=== PATIENT | female | born 1950 | race Caucasian/White ===

== ENCOUNTER → 2017-04-16 | Outpatient (CLI) | payer MEDICARE ==
--- NOTE | 2017-04-17 11:03 | MM ---
Reason for exam: clinical finding. Last mammogram was performed 9 months ago. History: Patient is postmenopausal and had first child at age 35. Family history of premenopausal breast cancer in mother. Benign left US cyst aspiration ea add of the left breast, May 01, 2010. Benign left US cyst aspiration of the left breast, May 01, 2010. Benign stereotactic core biopsy of the left breast, January 23, 2000. Excisional biopsy of the right breast, 1969. Took hormonal contraceptives for 8 years beginning at age 19. Physical Findings: Nurse Summary: a 4 x 2cm nodule in the left breast at 11-1 o'clock (nurse cw). MG 3D Diag Mammo W/Cad RT CC and MLO view(s) were taken of the right breast. Prior study comparison: July 18, 2016, bilateral MG 3d diag mammo w/cad JODI. The breast tissue is heterogeneously dense. This may lower the sensitivity of mammography. No significant new findings when compared with previous films. These results were verbally communicated with the patient and result sheet given to the patient on 04/16/17. ASSESSMENT: Incomplete: need additional imaging evaluation, BI-RAD 0 RECOMMENDATION: Ultrasound of the right breast.
--- NOTE | 2017-04-17 11:05 | USB ---
Reason for exam: additional evaluation requested from abnormal screening. History: Patient is postmenopausal and had first child at age 35. Family history of premenopausal breast cancer in mother. Benign left US cyst aspiration ea add of the left breast, May 01, 2010. Benign left US cyst aspiration of the left breast, May 01, 2010. Benign stereotactic core biopsy of the left breast, January 23, 2000. Excisional biopsy of the right breast, 1969. Took hormonal contraceptives for 8 years beginning at age 19. US Breast Limited RT Right breast ultrasound demonstrates a 3.2 x 2.8 x 1.8cm oval, cystic cluster lesion at 12 o'clock, a 0.3 x 0.4 x 0.3cm oval, too small to characterize lesion at 1 o'clock, a 0.3 x 0.3 x 0.3cm oval, too small to characterize lesion at 3 o'clock, a 0.6 x 0.6 x 0.5cm oval, cystic cluster lesion at 9 o'clock, a 2.7 x 3.7 x 1.8cm oval, cystic, cluster lesion at 11 o'clock, and multiple, too numerous lesions at 10 o'clock. These results were verbally communicated with the patient and result sheet given to the patient on 04/16/17. ASSESSMENT: Benign, BI-RAD 2 RECOMMENDATION: Routine screening mammogram of both breasts in 4 months. Back on schedule July 2017. Manage patient on a clinical basis, palpable abnormality.
== END | disposition home or self-care (01) ==
LOC: RADMAMWWP 14:31
PROVIDERS: ATTEND Family Medicine
DX: N63 Unspecified lump in breast (principal)
CPT/HCPCS: 76642; G0206; G0279

== ENCOUNTER → 2017-07-28 | Outpatient (CLI) | payer MEDICARE ==
--- NOTE | 2017-07-30 07:55 | MM ---
Reason for exam: screening (asymptomatic). Last mammogram was performed 3 months ago. History: Patient is postmenopausal and had first child at age 35. Family history of premenopausal breast cancer in mother. Benign left US cyst aspiration ea add of the left breast, May 01, 2010. Benign left US cyst aspiration of the left breast, May 01, 2010. Benign stereotactic core biopsy of the left breast, January 23, 2000. Excisional biopsy of the right breast, 1970. Took hormonal contraceptives for 8 years beginning at age 19. Physical Findings: A clinical breast exam by your physician is recommended on an annual basis and results should be correlated with mammographic findings. MG 3D Screening Mammo W/Cad Bilateral CC and MLO view(s) were taken. Prior study comparison: July 18, 2016, bilateral MG 3d diag mammo w/cad JODI. July 17, 2015, bilateral MG screening mammo w CAD. The breast tissue is heterogeneously dense. This may lower the sensitivity of mammography. Finding: There are typically benign grouped calcifications in the upper inner quadrant, middle position of the left breast. Previous mammotome biopsy in the left breast. There is a chronic nodularity in the right breast, at least 4 large lesions stable. There is no new dominant lesion. ASSESSMENT: Benign, BI-RAD 2 RECOMMENDATION: Routine screening mammogram of both breasts in 1 year.
== END | disposition home or self-care (01) ==
LOC: RADMAMWWP 09:41
PROVIDERS: ATTEND Family Medicine
DX: Z12.31 Encounter for screening mammogram for malignant neoplasm of breast (principal)
CPT/HCPCS: 77063; G0202

== ENCOUNTER → 2018-09-29 | Outpatient (CLI) | payer MEDICARE ==
--- NOTE | 2018-09-29 09:54 | US ---
EXAMINATION TYPE: US abdomen complete DATE OF EXAM: 09/29/2018 COMPARISON: NONE CLINICAL HISTORY: R74.8 Abnormal blood work. bloating EXAM MEASUREMENTS: Liver Length: 15.9 cm Gallbladder Wall: 0.1 cm CBD: 0.2 cm Spleen: 12.6 cm Right Kidney: 10.2 x 5.3 x 4.8 cm Left Kidney: 10.1 x 5.4 x 4.5 cm Pancreas: obscured by overlying bowel gas Liver: wnl Gallbladder: multiple mobile, echogenic, shadowing foci seen within GB Evidence for sonographic Bonds's sign: No CBD: wnl Spleen: wnl Right Kidney: wnl Left Kidney: Mid/lower pole cyst = 1.6x 1.2 x 1.3 cm Upper IVC: wnl Abd Aorta: wnl IMPRESSION: 1. Cholelithiasis 2. Limited assessment of the pancreas due to bowel gas. 3. Left simple renal cyst.
== END | disposition home or self-care (01) ==
LOC: RADUSWWP 09:08
PROVIDERS: ATTEND Family Medicine
DX: K80.20 Calculus of gallbladder without cholecystitis without obstruction (principal); N28.1 Cyst of kidney, acquired; R74.8 Abnormal levels of other serum enzymes
CPT/HCPCS: 76700

== ENCOUNTER → 2018-10-14 | Outpatient (CLI) | payer MEDICARE ==
--- NOTE | 2018-10-14 11:47 | MM ---
Reason for exam: clinical finding. Last mammogram was performed 1 year and 3 months ago. History: Patient is postmenopausal and had first child at age 35. Family history of premenopausal breast cancer in mother at age 49. Benign left US cyst aspiration ea add of the left breast, May 01, 2010. Benign left US cyst aspiration of the left breast, May 01, 2010. Benign stereotactic core biopsy of the left breast, January 23, 2000. Excisional biopsy of the right breast, 1969. Took hormonal contraceptives for 8 years beginning at age 19. Physical Findings: Nurse Summary: 4 x 3cm nodule in the right breast at 12 o'clock (nurse dw). MG 3D Diag Mammo W/Cad JODI Bilateral CC and MLO view(s) were taken. Prior study comparison: July 28, 2017, bilateral MG 3d screening mammo w/cad. April 16, 2017, right breast MG 3d diag mammo w/cad RT. The breast tissue is heterogeneously dense. This may lower the sensitivity of mammography. There is chronic nodularity bilaterally, improved upper outer right breast. These results were verbally communicated with the patient and result sheet given to the patient on 10/14/18. ASSESSMENT: Benign, BI-RAD 2 RECOMMENDATION: Routine screening mammogram of the right breast in 1 year. Manage patient on a clinical basis.
== END | disposition home or self-care (01) ==
LOC: RADMAMWWP 09:42
PROVIDERS: ATTEND Family Medicine
DX: N63.0 Unspecified lump in unspecified breast (principal)
CPT/HCPCS: 77066; G0279; 77062

== ENCOUNTER 2019-01-04 08:10 | Day surgery (SDC) | payer MEDICARE ==
[2018-12-31 11:33] VITALS: BMI 25.0
[~2019-01-04 08:10] MED LIST: LACTATED RINGERS 1,000 ML IV SCH; LIDOCAINE 1% 20 ML VIAL (10MG/ML) FOR IV START INTRADERMA PRN; MIDAZOLAM (PF) 2 MG/2 ML VIAL IV PRN
[2019-01-04 08:31] VITALS: RESP 16; TEMP 98.2
[2019-01-04] MEDS ORDERED: PROPOFOL 10 MG/ML 20 ML VIAL IV ONE (09:21)
[2019-01-04] MEDS ORDERED: LIDOCAINE 1% INJ 10MG/ML (20 ML MDV) ONE (09:21)
--- NOTE | 2019-01-04 09:35 | P.GSHP ---
History of Present Illness H&P Date: 01/04/19 Chief Complaint: GI bleed This is a 68-year-old female who has had intermittent rectal bleeding. She is no blood in her stool. Patient presents today for colonoscopy. Past Medical History Past Medical History: Hypertension Additional Past Medical History / Comment(s): positive cologuard,internal and external hemorrhoids,gallstones History of Any Multi-Drug Resistant Organisms: None Reported Past Surgical History: Adenoidectomy, Breast Surgery, Tonsillectomy Additional Past Surgical History / Comment(s): lump benign removed rt breast Past Anesthesia/Blood Transfusion Reactions: No Reported Reaction Smoking Status: Current every day smoker - Past Family History Mother Family Medical History: Cancer Additional Family Medical History / Comment(s): breast Medications and Allergies Home Medications Medication Instructions Recorded Confirmed Type Liver And Gallbladder Supp. 5 drop PO DAILY 12/31/18 History Fish Oil (Unknown Dose) 2 tab PO DAILY 12/31/18 History Lisinopril 20 mg PO QAM 12/31/18 01/04/19 History Milk Thistle 150 mg PO DAILY 12/31/18 12/31/18 History Allergies Allergy/AdvReac Type Severity Reaction Status Date / Time codeine AdvReac severe Verified 01/04/19 08:22 agitation Surgical - Exam Vital Signs Temp Pulse Resp BP Pulse Ox 98.2 F 82 16 145/83 96 01/04/19 08:25 01/04/19 08:25 01/04/19 08:25 01/04/19 08:25 01/04/19 08:25 - General well developed, well nourished, no distress - Eyes PERRL - ENT normal pinna - Neck no masses - Respiratory normal expansion - Cardiovascular Rhythm: regular - Abdomen Abdomen: soft, non tender Assessment and Plan Assessment: GI bleed. We'll perform colonoscopy.
--- NOTE | 2019-01-04 09:51 | P.OP ---
Date of Procedure: 01/04/19 Preoperative Diagnosis: GI bleed Postoperative Diagnosis: Severe external and internal hemorrhoids Diverticulosis Left colon polyp Transverse colon polyp Procedure(s) Performed: Colonoscopy Anesthesia: MAC Surgeon: Tiago Galicia Pathology: other (Colon polyps) Condition: stable Disposition: PACU Description of Procedure: The patient's placed on the endoscopy table in the lateral position. She received IV sedation. Digital rectal exam was performed which revealed external and internal hemorrhoids. The flexible colonoscope was then placed patient anus and passed throughout the entire colon. The ileocecal valve was visualized. The cecum appeared normal. In the ascending colon was normal. In the transverse colon there was a small sessile polyp. This removed with a cold forcep. Scope was withdrawn and in the descending colon there was another polyp seen and this was removed with the snare. In the descending and sigmoid colon there were moderate diverticular changes. The scope was then brought back the rectum and this appeared normal. The scope was withdrawn through the anus and there were significant internal and external hemorrhoids.
[2019-01-04 09:59] VITALS: BP 108/69; PULSE 77
== END 2019-01-04 10:43 | disposition home or self-care (01) ==
LOC: ORWHC2ENDO 08:10
PROVIDERS: ATTEND Surgery
DX: D12.4 Benign neoplasm of descending colon (principal); D12.3 Benign neoplasm of transverse colon; K64.4 Residual hemorrhoidal skin tags; K64.8 Other hemorrhoids; K57.30 Diverticulosis of large intestine without perforation or abscess without bleeding; I10 Essential (primary) hypertension; F17.210 Nicotine dependence, cigarettes, uncomplicated; Z79.899 Other long term (current) drug therapy; Z88.5 Allergy status to narcotic agent
CPT/HCPCS: 88305; 45380; 45385; J2001; J2704

== ENCOUNTER → 2019-10-15 | Outpatient (CLI) | payer MEDICARE ==
--- NOTE | 2019-10-19 08:53 | MM ---
Reason for exam: screening (asymptomatic). Last mammogram was performed 1 year ago. History: Patient is postmenopausal and had first child at age 35. Family history of premenopausal breast cancer in mother at age 49. Benign left US cyst aspiration ea add of the left breast, May 01, 2010. Benign left US cyst aspiration of the left breast, May 01, 2010. Benign stereotactic core biopsy of the left breast, January 23, 2000. Excisional biopsy of the right breast, 1969. Took hormonal contraceptives for 8 years beginning at age 19. Physical Findings: A clinical breast exam by your physician is recommended on an annual basis and results should be correlated with mammographic findings. MG 3D Screening Mammo W/Cad Bilateral CC and MLO view(s) were taken. Prior study comparison: October 14, 2018, bilateral MG 3d diag mammo w/cad JODI. July 28, 2017, bilateral MG 3d screening mammo w/cad. The breast tissue is heterogeneously dense. This may lower the sensitivity of mammography. Previous mammotome biopsy in the left breast. There is extensive chronic nodularity bilaterally, stable or decreased in size. There is no discrete abnormality. ASSESSMENT: Benign, BI-RAD 2 RECOMMENDATION: Routine screening mammogram of both breasts in 1 year.
== END ==
LOC: RADMAMWWP 11:12
PROVIDERS: ATTEND Family Medicine
DX: Z12.31 Encounter for screening mammogram for malignant neoplasm of breast (principal)
CPT/HCPCS: 77063; 77067

== ENCOUNTER → 2021-01-05 | Outpatient (CLI) | payer MEDICARE ==
--- NOTE | 2021-01-09 09:17 | MM ---
Reason for exam: screening (asymptomatic). Last mammogram was performed 1 year and 3 months ago. History: Patient is postmenopausal and had first child at age 35. Family history of premenopausal breast cancer in mother at age 49. Benign left US cyst aspiration ea add of the left breast, May 01, 2010. Benign left US cyst aspiration of the left breast, May 01, 2010. Benign stereotactic core biopsy of the left breast, January 23, 2000. Excisional biopsy of the right breast, 1969. Took hormonal contraceptives for 8 years beginning at age 19. Physical Findings: A clinical breast exam by your physician is recommended on an annual basis and results should be correlated with mammographic findings. MG 3D Screening Mammo W/Cad Bilateral CC and MLO view(s) were taken. Prior study comparison: October 15, 2019, bilateral MG 3d screening mammo w/cad. October 14, 2018, bilateral MG 3d diag mammo w/cad JODI. The breast tissue is heterogeneously dense. This may lower the sensitivity of mammography. Stable calcifications left breast. Previous mammotome biopsy in the left breast. No significant changes when compared with prior studies. ASSESSMENT: Benign, BI-RAD 2 RECOMMENDATION: Routine screening mammogram of both breasts in 1 year.
== END | disposition home or self-care (01) ==
LOC: RADMAMWWP 12:36
PROVIDERS: ATTEND Family Medicine
DX: Z12.31 Encounter for screening mammogram for malignant neoplasm of breast (principal)
CPT/HCPCS: 77063; 77067

== ENCOUNTER → 2022-01-16 | Outpatient (CLI) | payer MEDICARE ==
--- NOTE | 2022-01-16 13:40 | MM ---
Reason for exam: screening (asymptomatic). Last mammogram was performed 1 year ago. History: Patient is postmenopausal and had first child at age 35. Family history of premenopausal breast cancer in mother at age 49. Benign left US cyst aspiration ea add of the left breast, May 01, 2010. Benign left US cyst aspiration of the left breast, May 01, 2010. Benign stereotactic core biopsy of the left breast, January 23, 2000. Excisional biopsy of the right breast, 1969. Took hormonal contraceptives for 8 years beginning at age 19. Physical Findings: A clinical breast exam by your physician is recommended on an annual basis and results should be correlated with mammographic findings. MG 3D Screening Mammo W/Cad Bilateral CC and MLO view(s) were taken. Prior study comparison: January 05, 2021, bilateral MG 3d screening mammo w/cad. October 15, 2019, bilateral MG 3d screening mammo w/cad. The breast tissue is extremely dense which could obscure a lesion on mammography. Stable calcifications left breast. There is chronic nodularity bilaterally. No significant changes when compared with prior studies. ASSESSMENT: Benign, BI-RAD 2 RECOMMENDATION: Routine screening mammogram of both breasts in 1 year. Manage patient on a clinical basis.
== END | disposition home or self-care (01) ==
LOC: RADMAMWWP 10:04
PROVIDERS: ATTEND Family Medicine
DX: Z12.31 Encounter for screening mammogram for malignant neoplasm of breast (principal)
CPT/HCPCS: 77063; 77067

== ENCOUNTER → 2022-01-22 | Outpatient (CLI) | payer MEDICARE ==
--- NOTE | 2022-01-22 10:30 | USB ---
Reason for exam: clinical finding. History: Patient is postmenopausal and had first child at age 35. Family history of premenopausal breast cancer in mother at age 49. Benign left US cyst aspiration ea add of the left breast, May 01, 2010. Benign left US cyst aspiration of the left breast, May 01, 2010. Benign stereotactic core biopsy of the left breast, January 23, 2000. Excisional biopsy of the right breast, 1969. Took hormonal contraceptives for 8 years beginning at age 19. Indicated problem(s): non-bloody discharge in the right breast. Physical Findings: A clinical breast exam by your physician is recommended on an annual basis and results should be correlated with mammographic findings. US Breast RT Right complete breast ultrasound includes all four quadrants, the retroareolar region and axilla. Finding demonstrates a 2.1 x 1.9 x 1.5cm lobular, cystic lesion at 12 o'clock, a 0.5 x 0.6 x 0.4cm oval, hypoechoic lesion at 12 o'clock, 6 month follow up recommended, a 0.5 x 0.8 x 0.7cm lobular, oval, cluster, mixed lesion at 1 o'clock, probably debris filled cyst, a 1.6 x 1.8 x 1.3cm oval, complicated, cystic lesion at 2 o'clock, a 0.9 x 0.8 x 0.6cm oval, hypoechoic lesion at 4 o'clock, 6 month follow up recommended, a 0.5 x 1.0 x 0.4cm oval, hypoechoic, vascular lesion at 5 o'clock, 6 month follow up recommended, a 1.1 x 1.0 x 0.9cm complicated, cystic lesion at 5 o'clock, 6 month follow up recommended, a 1.6 x 0.7 x 1.0cm mixed lesion at 7 o'clock, 6 month follow up recommended, a 0.5 x 0.5 x 0.2cm oval, hypoechoic lesion at 10 o'clock, a 0.7 x 0.8 x 0.6cm hypoechoic lesion at 10 o'clock, 6 month follow up recommended, a 1.1 x 1.0 x 0.8cm lobular, cystic lesion at 11 o'clock and a 0.7 x 0.9 x 0.6cm oval, irregular, hypoechoic lesion at 11:30, 6 month follow up recommended. Benign appearing axillary nodes. These results were verbally communicated with the patient and result sheet given to the patient on 01/22/22. ASSESSMENT: Probably benign, BI-RAD 3 RECOMMENDATION: Ultrasound of the right breast in 6 months. Manage on a clinical basis with regard to episode of clear nipple discharge. If it recurs and becomes spontaneous, further evaluation can be considered.
== END | disposition home or self-care (01) ==
LOC: RADUSWWP 08:49
PROVIDERS: ATTEND Family Medicine
DX: N64.52 Nipple discharge (principal)

== ENCOUNTER → 2022-04-25 | Outpatient (CLI) | payer MEDICARE ==
--- NOTE | 2022-04-25 09:54 | USB ---
Reason for Exam: Follow-up at short interval from prior study. Patient History: Menarche at age 11. First Full-Term at age 35. Late child-bearing (after 30). Postmenopausal. Hormonal Contraceptives, starting at age 19 for 8 years. 1970, Excisional Biopsy on the Right side. 05/01/2010, Benign Cyst Aspiration on the left side. 05/01/2010, Benign Cyst Aspiration on the left side. 01/23/2000, Benign Stereotactic Core Biopsy on the left side. Mother had breast cancer, age 49. Risk Values: Deanna 5 year model risk: 5.3%. NCI Lifetime model risk: 12.6%. Technique: Method: Whole Breast Handheld. Prior Study Comparison: 10/15/2019 Bilateral Screening Mammogram, [facility]. 01/05/2021 Bilateral Screening Mammogram, [facility]. 01/16/2022 Bilateral Screening Mammogram, [facility]. Findings: The whole breast of the right breast, the axilla of the right breast and the retroareolar of the right breast were scanned. Multiple cysts and clusters of cysts are scattered throughout the visualized portions of the breasts. Some are too small to classify. Short-term follow-up breast ultrasound is recommended in 6 months. There is a complex cyst containing internal debris with smooth margins and good through transmission and posterior wall enhancement. Cyst aspiration of this 1:00 position cyst is recommended. This measures 2.2 x 1.4 x 1.6 cm.. Overall Assessment: Suspicious, BI-RAD 4 Management: Aspiration of the right breast. A clinical breast exam by your physician is recommended on an annual basis and results should be correlated with mammographic findings. Electronically signed and approved by: Deng Garcia D.O. Radiologis
== END | disposition home or self-care (01) ==
LOC: RADUSWWP 09:01
PROVIDERS: ATTEND Family Medicine
DX: R92.8 Other abnormal and inconclusive findings on diagnostic imaging of breast (principal)

== ENCOUNTER → 2022-05-10 | Outpatient (CLI) | payer MEDICARE ==
[2022-05-10 09:40] VITALS: BP 137/79; PULSE 89; RESP 17; TEMP 98.5
--- NOTE | 2022-05-10 10:33 | P.GSHP ---
History of Present Illness H&P Date: 05/10/22 Chief Complaint: abnormal right breast ultrasound Tiffany is a 71 year old white female seen in consultation for Dr. Catsellanos regarding an ultrasound abnormality in the right breast. The patient had a routine screening mammogram performed on 3221. She also had a right breast ultrasound which was done on 3821, a repeat ultrasound was recommended in 6 months. This was performed on 6921. As a result of this a complex cyst with internal debris was noted and aspiration of the 1:00 cyst was recommended. The cyst was felt to measure 2.2 x 1.6 cm. The patient does not feel any lumps masses or nodules of concern in either breast. She is complaining of any nipple discharge or skin changes. She has not had any trauma or infection in the breast. She had a stero biopsy of her left breast on January 23 2000. An excisional biopsy of the right breast in 1969. These were both benign. Caffeine: 3/day tea and coke nicotine: 1/3 of cigarette at at time chocolate: daily hormones: BCP: at 19 for 8 years Family History: mother: breast cancer (took estrogen) Hormonal History: menarche: 11 M2, breast fed: yes, age at first : 35 menopause: 48 Surgical History: breast biopsy Medical History: HTN Social History: nicotine: since 18 alcohol: beer drinker (monthly) drugs: none - Constitutional Constitutional: Denies chills, Denies fever - EENT Eyes: denies blurred vision, denies pain Ears: bilateral: decreased hearing, deny: tinnitus Ears, nose, mouth and throat: Denies headache, Denies sore throat - Breasts Breasts: bilateral: as per HPI - Cardiovascular Cardiovascular: Denies chest pain, Denies shortness of breath - Respiratory Respiratory: Denies cough, Denies 7 - Gastrointestinal Gastrointestinal: Denies abdominal pain, Denies diarrhea, Denies nausea, Denies vomiting - Genitourinary (Female) Genitourinary: Denies dysuria, Denies hematuria - Menstruation Menstruation: Reports postmenopausal - Musculoskeletal Musculoskeletal: Denies myalgias - Integumentary Integumentary: Denies pruritus, Denies rash - Neurological Neurological: Denies numbness, Denies weakness - Psychiatric Psychiatric: Denies anxiety, Denies depression - Endocrine Endocrine: Reports weight change, Denies fatigue - Hematologic/Lymphatic Comment: none - Allergic/Immunologic Allergic/Immunologic: Reports seasonal allergies Past Medical History Past Medical History: Hypertension Additional Past Medical History / Comment(s): positive cologuard,internal and external hemorrhoids,gallstones History of Any Multi-Drug Resistant Organisms: None Reported Past Surgical History: Adenoidectomy, Breast Surgery, Tonsillectomy Additional Past Surgical History / Comment(s): lump benign removed rt breast Past Anesthesia/Blood Transfusion Reactions: No Reported Reaction Smoking Status: Current every day smoker Past Alcohol Use History: Rare Additional Past Alcohol Use History / Comment(s): started smoking mid 20's on and off,1ppd Past Drug Use History: None Reported - Past Family History Mother Family Medical History: Cancer Additional Family Medical History / Comment(s): breast Medications and Allergies Home Medications Medication Instructions Recorded Confirmed Type Liver And Gallbladder Supp. 5 drop PO DAILY 12/31/18 05/10/22 History Fish Oil (Unknown Dose) 2 tab PO DAILY 12/31/18 05/10/22 History lisinopriL 20 mg PO QAM 12/31/18 05/10/22 History Doxycycline [Vibramycin] 25 mg PO DAILY 04/25/22 05/10/22 History Allergies Allergy/AdvReac Type Severity Reaction Status Date / Time codeine AdvReac severe Verified 05/10/22 09:36 agitation Surgical - Exam Vital Signs Temp Pulse Resp BP Pulse Ox 98.5 F 89 17 137/79 97 05/10/22 09:37 05/10/22 09:37 05/10/22 09:37 05/10/22 09:37 05/10/22 09:37 BMI: 25.8 - General no distress - Eyes normal ocular movement - Neck trachea midline - Respiratory normal respiratory effort - Cardiovascular Rhythm: regular Heart Sounds: normal: S1, S2 - Abdomen Abdomen: soft, non tender, no guarding, no rigid, no rebound - Integumentary normal turgor - Neurologic no disoriented, no combative - Musculoskeletal normal gait - Psychiatric oriented to time, oriented to person, oriented to place, speech is normal, memory intact Breast Exam: BRA: 38B inspection: bilateral grade 3 ptosis and bilateral inverted nipples Palpation: right breast: Positional exam dense breasts no dominant masses or nodules of concern Right axilla: No adenopathy of concern Left breast: Multi-positional exam dense breast fibrocystic changes no dominant masses or nodules of concern Left axilla: No adenopathy of concern Results Results of mammogram and ultrasound reviewed Assessment and Plan Assessment: Impression: Dense breast Fibrocystic breast changes Abnormal right breast ultrasound Plan: Right breast ultrasound aspiration/core biopsy Follow up after biopsy Risks and benefits to procedure discussed with the patient. She understands and wishes to proceed. CC: Dr. Castellanos
== END ==
LOC: WWCWWP 09:04
PROVIDERS: ATTEND Surgery
DX: N60.11 Diffuse cystic mastopathy of right breast (principal); F17.210 Nicotine dependence, cigarettes, uncomplicated; I10 Essential (primary) hypertension; Z79.899 Other long term (current) drug therapy; Z88.5 Allergy status to narcotic agent

== ENCOUNTER → 2022-05-10 | Day surgery (SDC) | payer MEDICARE ==
--- NOTE | 2022-05-15 12:24 | USB ---
Reason for Exam: Post Procedure Mammogram. Last screening mammogram was performed 3 month(s) ago. Patient History: Menarche at age 11. First Full-Term at age 35. Late child-bearing (after 30). Postmenopausal. Hormonal Contraceptives, starting at age 19 for 8 years. 1970, Excisional Biopsy on the Right side. 05/01/2010, Benign Cyst Aspiration on the left side. 05/01/2010, Benign Cyst Aspiration on the left side. 01/23/2000, Benign Stereotactic Core Biopsy on the left side. Mother had breast cancer, age 49. Risk Values: Deanna 5 year model risk: 5.3%. NCI Lifetime model risk: 12.6%. Prior Study Comparison: 10/15/2019 Bilateral Screening Mammogram, [facility]. 01/05/2021 Bilateral Screening Mammogram, [facility]. 01/16/2022 Bilateral Screening Mammogram, [facility]. Tissue Density: Right: The breast tissue is extremely dense which could obscure a lesion on mammography. Pathology Description: Location: 1 o'clock. The ultrasound guided cyst aspiration procedure was explained to the patient. The risks, benefits, alternatives were discussed. An informed consent was then obtained. A time out was performed. The patient was placed in supine positioning for imaging and for the procedure. The overlying skin was prepped with betadine and sterilely draped in usual sterile fashion. 6 ml 1% lidocaine was used as anesthetic into the skin and deeper breast tissue up to area of concern in the right 1:00 o'clock breast. Under ultrasound guidance, an 18-gauge spinal needle was advanced into the cyst and aspiration yielded .5 mL of brownish bloody aspirate. The fluid was labeled and sent for laboratory analysis. A clip was left in lesion. Good hemostasis was obtained with direct pressure. Postprocedure mammogram: The patient was transferred to mammography for physician ordered post procedure mammogram for clip placement verification. The clip is in the expected region of the biopsy. The patient tolerated the procedure well without any immediate complication. The patient was discharged to home in stable condition. Impression: Successful ultrasound guided cyst aspiration right 1:00 breast. Cytology pending. Pathology Results: Result: Benign. RIGHT BREAST, 1:00 POSITION, ASPIRATION: Degenerated cyst contents with macrophages, few benign and degenerated epithelial cells and scattered inflammatory cells. See note. Overall Assessment: Benign Assessment: MG diagnostic mammo RT wo CAD - Right: Benign, BI-RAD 2. Management: Diagnostic Breast Ultrasound of the right breast in 6 months. Electronically signed and approved by: Nino Hernández M.D. Radiologis
== END ==
LOC: RADUSWWP 09:31
PROVIDERS: ATTEND Surgery
DX: N60.01 Solitary cyst of right breast (principal); Z80.3 Family history of malignant neoplasm of breast; Z88.5 Allergy status to narcotic agent; Z79.899 Other long term (current) drug therapy; F17.200 Nicotine dependence, unspecified, uncomplicated
CPT/HCPCS: 88305; 88173; 77065; 76942; 19000; A4648

== ENCOUNTER → 2022-05-17 | Outpatient (CLI) | payer MEDICARE ==
[2022-05-17 15:27] VITALS: BP 153/87; PULSE 103; RESP 18; TEMP 98.5
--- NOTE | 2022-05-17 15:52 | P.PN ---
Subjective Progress Note Date: 05/17/22 Principal diagnosis: fibrocystic breast Tiffany is a 71 year old white female status post aspiration of a right breast cyst on 05-10-22 which was benign cyst contents. She tolerated the procedure without difficulty. Objective - Vital Signs Vital signs: Vital Signs Temp 98.5 F 05/17/22 15:24 Pulse 103 H 05/17/22 15:24 Resp 18 05/17/22 15:24 BP 153/87 05/17/22 15:24 Pulse Ox 95 05/17/22 15:24 FiO2 Intake & Output 05/16/22 05/17/22 05/17/22 18:59 06:59 18:59 Weight 72.575 kg - Constitutional General appearance: Present: cooperative - EENT Eyes: Present: EOMI ENT: Present: hearing grossly normal - Neck Neck: Present: normal ROM - Respiratory Respiratory: bilateral: CTA - Cardiovascular Abnormal Heart Sounds: Present: systolic murmur - Integumentary Integumentary Comment(s): mild echymosis at biopsy site - Musculoskeletal Musculoskeletal: Present: gait normal - Psychiatric Psychiatric: Present: A&O x's 3, appropriate affect, intact judgment & insight - Additional findings Additional findings: Right breast biopsy spot: Mild ecchymosis at site no evidence of infection Assessment and Plan Assessment: Impression: Aspiration cystic lesion right breast pathology benign Plan: Repeat right breast ultrasound in 6 months with physician exam at that time Question systolic ejection murmur would recommend follow-up with primary care do brandior CC: Dr. Castellanos
== END | disposition home or self-care (01) ==
LOC: WWCWWP 15:13
PROVIDERS: ATTEND Surgery
DX: Z53.9 Procedure and treatment not carried out, unspecified reason (principal)

== ENCOUNTER → 2022-06-25 | Outpatient (CLI) | payer MEDICARE ==
--- NOTE | 2022-06-25 11:43 | CA ---
Transthoracic Echo Report Name: Tiffany Blair Age: 71 Gender: F : 1950 Exam Date: 06/25/2022 10:21 Exam Location: [place] [facility] Ht (in): 66 Wt (lb): 170 Ordering Physician: Mi Castellanos MD Attending/Referring Phys: MARS HOOVER [employer] P[employer] Yolanda Maciel RDCS Procedure CPT: Indications: R01.1 MURMUR I10 HTN E78.00 HYPERCHOLESTEROLEM Cardiac Hx: Fm hx Technical Quality: Fair Contrast 1: Total Dose (mL): Contrast 2: Total Dose (mL): MEASUREMENTS (Male / Female) Normal Values 2D ECHO LV Diastolic Diameter PLAX 2.3 cm 4.2 - 5.9 / 3.9 - 5.3 cm LV Systolic Diameter PLAX 1.4 cm IVS Diastolic Thickness 1.0 cm 0.6 - 1.0 / 0.6 - 0.9 cm LVPW Diastolic Thickness 1.1 cm 0.6 - 1.0 / 0.6 - 0.9 cm LV Relative Wall Thickness 0.9 RV Internal Dim ED PLAX 1.6 cm LA Volume 26.6 cm??? 18 - 58 / 22 - 52 cm??? M-MODE Aortic Root Diameter MM 3.1 cm LA Systolic Diameter MM 2.9 cm LA Ao Ratio MM 0.9 MV E Point Septal Separation 0.2 cm AV Cusp Separation MM 2.0 cm DOPPLER AV Peak Velocity 225.0 cm/s AV Peak Gradient 20.2 mmHg AV Mean Velocity 196.0 cm/s AV Mean Gradient 16.3 mmHg AV Velocity Time Integral 47.9 cm LVOT Peak Velocity 195.4 cm/s LVOT Peak Gradient 15.3 mmHg MV Area PHT 3.1 cm??? MR Peak Velocity 527.5 cm/s MR Peak Gradient 111.3 mmHg Mitral E Point Velocity 80.3 cm/s Mitral A Point Velocity 127.5 cm/s Mitral E to A Ratio 0.6 MV Deceleration Time 241.8 ms MV E' Velocity 7.7 cm/s Mitral E to MV E' Ratio 10.4 TR Peak Velocity 264.9 cm/s TR Peak Gradient 28.1 mmHg Right Ventricular Systolic Press 33.1 mmHg FINDINGS Left Ventricle Mildly increased posterior wall thickness. Left ventricular ejection fraction is estimated at 55-60 %. Left ventricular cavity size normal. There is a sigmoid septum which could be causing the LVOT gradient to be high. Right Ventricle The right ventricle is normal in size and function. Right Atrium The right atrium is normal in size. Left Atrium The left atrium is normal in size. Mitral Valve Structurally normal mitral valve without significant stenosis or prolapse. There is trace mitral regurgitation. Aortic Valve Aortic valve not well visualized. Possible mild Aortic stenosis with a peak gradient of 20 mmHg and a mean gradient of 16 mmHg. There also appears to be a gradient across the LVOT with a peak graient of 18 mmHg. Lvot gradient is higher but can not achieve true peak gradient due to alliasing. Tricuspid Valve Structurally normal tricuspid valve without significant stenosis. Pulmonary artery systolic pressure is normal. Trace tricuspid regurgitation. Pulmonic Valve Structurally normal pulmonic valve without significant stenosis. There is no pulmonic regurgitation. Pericardium Normal pericardium without effusion. Aorta Normal aortic root dimension. CONCLUSIONS Normal LV systolic function with asymmetrical septal hypertrophy and left ventricular outflow tract gradients Mild aortic stenosis Previewed by: Dr. Angelito Yin MD (Electronically Signed) Final Date: 25 June 2022 11:43
== END | disposition home or self-care (01) ==
LOC: RADECHMAIN 10:15
PROVIDERS: ATTEND Family Medicine
DX: R01.1 Cardiac murmur, unspecified (principal); I10 Essential (primary) hypertension; E78.00 Pure hypercholesterolemia, unspecified
CPT/HCPCS: 93306

== ENCOUNTER → 2023-01-31 | Outpatient (CLI) | payer MEDICARE ==
--- NOTE | 2023-01-31 14:25 | MM ---
Reason for Exam: Clinical finding. Last screening mammogram was performed 12 month(s) ago. Indicated Problems: Lump or thickening of the right side for 2 Week(s). Non-bloody discharge of the right side. Patient History: Menarche at age 11. First Full-Term at age 35. Late child-bearing (after 30). Postmenopausal. Hormonal Contraceptives, starting at age 19 for 8 years. 05/10/2022, Benign US breast aspiration single RT on the right side. 1969, Excisional Biopsy on the Right side. 05/01/2010, Benign Cyst Aspiration on the left side. 05/01/2010, Benign Cyst Aspiration on the left side. 01/23/2000, Benign Stereotactic Core Biopsy on the left side. Mother had breast cancer, age 49. Risk Values: Deanna 5 year model risk: 5.3%. NCI Lifetime model risk: 11.9%. Prior Study Comparison: 10/15/2019 Bilateral Screening Mammogram, [facility]. 01/05/2021 Bilateral Screening Mammogram, [facility]. 01/16/2022 Bilateral Screening Mammogram, [facility]. 05/10/2022 Right MG diagnostic mammo RT wo CAD, [facility]. Tissue Density: The breast tissue is heterogeneously dense. This may lower the sensitivity of mammography. Findings: Analyzed By CAD. Benign-appearing round calcifications within both breasts. Biopsy markers demonstrated within both breasts. Similar chronic nodularity within the left breast. There are new and/or enlarged at least 4 distinct round circumscribed masses within the right breast at site of palpable abnormality. The largest measures up to 2.8 cm with another one measuring 2.2 cm just beneath the palpable marker. Another one posteriorly measures up to 1.6 cm. Overall Assessment: Incomplete: need additional imaging evaluation, BI-RAD 0 Management: Diagnostic Breast Ultrasound of the right breast. A clinical breast exam by your physician is recommended on an annual basis and results should be correlated with mammographic findings. This exam should not preclude additional follow-up of suspicious palpable abnormalities. Results were given to the patient verbally at the time of exam. Electronically signed and approved by: Paul Mittal D.O.
--- NOTE | 2023-01-31 14:38 | USB ---
Reason for Exam: Follow-up at short interval from prior study. Patient History: Menarche at age 11. First Full-Term at age 35. Late child-bearing (after 30). Postmenopausal. Hormonal Contraceptives, starting at age 19 for 8 years. 05/10/2022, Benign US breast aspiration single RT on the right side. 1969, Excisional Biopsy on the Right side. 05/01/2010, Benign Cyst Aspiration on the left side. 05/01/2010, Benign Cyst Aspiration on the left side. 01/23/2000, Benign Stereotactic Core Biopsy on the left side. Mother had breast cancer, age 49. Risk Values: Deanna 5 year model risk: 5.3%. NCI Lifetime model risk: 11.9%. Prior Study Comparison: 01/05/2021 Bilateral Screening Mammogram, [facility]. 01/16/2022 Bilateral Screening Mammogram, [facility]. 05/10/2022 Right MG diagnostic mammo RT wo CAD, [facility]. Findings: The whole breast of the right breast, the axilla of the right breast and the retroareolar of the right breast were scanned. A complete US of all four quadrants of the breast and retro-areolar nipple region were reviewed. There is a simple anechoic cyst at 12:00 in the patient's region of about a 3 cm from the nipple measuring 2.8 x 1.9 x 2.2 cm. Previous aspiration with clip identified at 1:00 2 sagittal nipple. There is a complex cyst within the right breast at 1:00 2 cm from the nipple measuring 1.6 x 0.9 x 1.4 cm without internal color flow. The internal paracolic region does not appear to layer. Additional complex cyst with internal debris in the right breast at 2:00 2 sagittal and nipple measuring 0.7 x 0.5 x 0.4 cm. Cluster of cysts demonstrated within the right breast at 4:00 3 cm from nipple measuring 1.7 x 0.8 x 1.6 cm. This is similar to prior examination. Additional cluster of cysts identified within the right breast at 7:00 4 cm the nipple measuring 1.8 x 0.8 x 1.0 cm. This is stable from prior examination.A complete US of all four quadrants of the breast and retro-areolar nipple region were reviewed. There is a simple anechoic cyst at 12:00 in the patient's region of about a 3 cm from the nipple measuring 2.8 x 1.9 x 2.2 cm. Previous aspiration with clip identified at 1:00 2 sagittal nipple. There is a complex cyst within the right breast at 1:00 2 cm from the nipple measuring 1.6 x 0.9 x 1.4 cm without internal color flow. The internal hypoechoic region does not appear to layer. Additional complex cyst with internal debris in the right breast at 2:00 2 sagittal and nipple measuring 0.7 x 0.5 x 0.4 cm. Cluster of cysts demonstrated within the right breast at 4:00 3 cm from nipple measuring 1.7 x 0.8 x 1.6 cm. This is similar to prior examination. Additional cluster of cysts identified within the right breast at 7:00 4 cm the nipple measuring 1.8 x 0.8 x 1.0 cm. This is stable from prior examination. Overall Assessment: Suspicious, BI-RAD 4 Management: Aspiration of the right breast. Recommendation for aspiration of 2 cysts containing internal debris within the right breast. A clinical breast exam by your physician is recommended on an annual basis and results should be correlated with mammographic findings. This exam should not preclude additional follow-up of suspicious palpable abnormalities. Results were given to the patient verbally at the time of exam. Electronically signed and approved by: Paul Mittal D.O.
== END | disposition home or self-care (01) ==
LOC: RADMAMWWP 12:59
PROVIDERS: ATTEND Family Medicine
DX: R92.8 Other abnormal and inconclusive findings on diagnostic imaging of breast (principal); N60.02 Solitary cyst of left breast; Z78.0 Asymptomatic menopausal state; Z80.3 Family history of malignant neoplasm of breast
CPT/HCPCS: 77066; 76641; G0279; 77062

== ENCOUNTER → 2023-02-25 | Day surgery (SDC) | payer MEDICARE ==
--- NOTE | 2023-02-25 14:47 | MM ---
Reason for Exam: Post Procedure Mammogram. Last screening mammogram was performed less than 1 month ago. Patient History: Menarche at age 11. First Full-Term at age 35. Late child-bearing (after 30). Postmenopausal. Hormonal Contraceptives, starting at age 19 for 8 years. 05/10/2022, Benign US breast aspiration single RT on the right side. 1969, Excisional Biopsy on the Right side. 05/01/2010, Benign Cyst Aspiration on the left side. 05/01/2010, Benign Cyst Aspiration on the left side. 01/23/2000, Benign Stereotactic Core Biopsy on the left side. Mother had breast cancer, age 49. Risk Values: Deanna 5 year model risk: 5.3%. NCI Lifetime model risk: 11.9%. Prior Study Comparison: 01/16/2022 Bilateral Screening Mammogram, [facility]. 05/10/2022 Right MG diagnostic mammo RT wo CAD, [facility]. 01/31/2023 Bilateral MG 3D diag mammo w/cad JODI, [facility]. Tissue Density: Right: The breast tissue is heterogeneously dense. This may lower the sensitivity of mammography. Overall Assessment: Post procedure mammogram for marker placement Management: Post Mammogram for Supa Placement of the right breast. Electronically signed and approved by: Sreekanth Brito DO
--- NOTE | 2023-03-04 11:15 | USB ---
Risk Values: Deanna 5 year model risk: 5.3%. NCI Lifetime model risk: 11.9%. Prior Study Comparison: 01/16/2022 Bilateral Screening Mammogram, [facility]. 05/10/2022 Right MG diagnostic mammo RT wo CAD, [facility]. 01/31/2023 Bilateral MG 3D diag mammo w/cad JODI, [facility]. Pathology Description: Location: 1 o'clock. Wing Clip The ultrasound guided cyst aspiration procedure was explained to the patient. The risks, benefits, alternatives were discussed. An informed consent was then obtained. A time out was performed. The patient was placed in supine positioning for imaging and for the procedure. The overlying skin was prepped with betadine and sterilely draped in usual sterile fashion. 5 ml 1% lidocaine was used as anesthetic into the skin and deeper breast tissue up to area of concern in the 1 o'clock breast, 2 cm from nipple. Under ultrasound guidance, an 18-gauge spinal needle was advanced into the cyst and aspiration yielded 4 mL of dark red/brown fluid. The fluid was labeled and sent for laboratory analysis. A wing clip was left in lesion. Good hemostasis was obtained with direct pressure. It was then directed 3 more superficial lesion at 2:00 and Under ultrasound guidance, an 18-gauge spinal needle was advanced into the cyst and aspiration yielded 1 mL of yellow/milky fluid. The fluid was labeled and sent for laboratory analysis. A T4 clip was left in lesion. Good hemostasis was obtained with direct pressure. Postprocedure mammogram: The patient was transferred to mammography for physician ordered post procedure mammogram for clip placement verification. The clip is in the expected region of the biopsy. The patient tolerated the procedure well without any immediate complication. The patient was discharged to home in stable condition. Impression: Successful ultrasound guided cyst aspiration left breast. Cytology pending. Pathology Results: Result: Benign, Benign cyst. A, RIGHT BREAST, ONE O'CLOCK, ASPIRATE: Degenerated blood, hemosiderin laden histiocytes and rare clusters of bland apocrine cells consistent with hemorrhagic apocrine cyst/cyst contents. B. RIGHT BREAST, TWO O'CLOCK, ASPIRATE: Virtually acellular specimen consisting of blood, non-diagnostic. Pathology Description: Location: 2 o'clock. Overall Assessment: Benign Management: Diagnostic Breast Ultrasound of the right breast in 6 months. Electronically signed and approved by: Sreekanth Brito DO
== END ==
LOC: RADUSWWP 12:42
PROVIDERS: ATTEND Surgery
DX: R92.8 Other abnormal and inconclusive findings on diagnostic imaging of breast (principal); Z80.3 Family history of malignant neoplasm of breast
CPT/HCPCS: 88305; 77065; 76942; 19000; 19001; A4648

== ENCOUNTER → 2023-09-26 | Outpatient (CLI) | payer MEDICARE ==
--- NOTE | 2023-09-26 12:16 | MR ---
EXAMINATION TYPE: MR brain wo con DATE OF EXAM: 09/26/2023 11:57 AM COMPARISON: None. 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 No gadolinium was gi marina. FINDINGS: The connors-white junctions, ventricular system, and cisterns appear unremarkable. Patchy areas of high T2/FLAIR signal intensity are seen within the periventricular and subcortical white matter. Addition al foci identified within the right harlan. Midline structures show no abnormality. There is a single t iny focus of restricted diffusion identified within the posterior right frontal lobe (series 303, sathish ge 216). The susceptibility weighted images do not reveal any evidence for micro-hemorrhage. Age-appr opriate cerebral volume loss. The bone marrow signal is within normal limits. The mastoid air cells are clear. The orbits unremarka ble. Mild mucosal thickening of the bilateral maxillary sinuses with right greater than left. IMPRESSION: 1. Single tiny focus of acute/subacute ischemia within the posterior right frontal lobe. 2. Nonspecific white matter changes, likely secondary to small vessel ischemic disease.
== END | disposition home or self-care (01) ==
LOC: RADMRIMAIN 10:28
PROVIDERS: ATTEND Psychiatry & Neurology Neurology
DX: F03.90 Unspecified dementia, unspecified severity, without behavioral disturbance, psychotic disturbance, mood disturbance, and anxiety (principal); I67.82 Cerebral ischemia; G93.89 Other specified disorders of brain
CPT/HCPCS: 70551

== ENCOUNTER → 2023-11-06 | Outpatient (CLI) | payer MEDICARE ==
--- NOTE | 2023-11-07 10:12 | CA ---
Transthoracic Echo Report Name: Tiffany Blair Age: 72 Gender: F : 1950 Exam Date: 11/06/2023 13:47 Exam Location: [place] [facility] Ht (in): 66 Wt (lb): 140 Ordering Physician: Alex Reid DO Attending/Referring Phys: Sandrita Daniel PAC Director Channel Aubrie Borges [facility] Procedure CPT: Indications: R011 murmur Cardiac Hx: Technical Quality: Technically difficult study Contrast 1: Total Dose (mL): Contrast 2: Total Dose (mL): MEASUREMENTS (Male / Female) Normal Values 2D ECHO LV Diastolic Diameter PLAX 4.0 cm 4.2 - 5.9 / 3.9 - 5.3 cm LV Systolic Diameter PLAX 2.4 cm IVS Diastolic Thickness 0.9 cm 0.6 - 1.0 / 0.6 - 0.9 cm LVPW Diastolic Thickness 0.9 cm 0.6 - 1.0 / 0.6 - 0.9 cm LV Relative Wall Thickness 0.4 LVOT Diameter 2.0 cm Ascending Aorta Diameter 3.2 cm M-MODE Aortic Root Diameter MM 3.0 cm LA Systolic Diameter MM 3.2 cm LA Ao Ratio MM 1.1 AV Cusp Separation MM 2.0 cm DOPPLER AV Peak Velocity 218.4 cm/s AV Peak Gradient 19.1 mmHg AV Mean Velocity 166.1 cm/s AV Mean Gradient 11.9 mmHg AV Velocity Time Integral 45.2 cm LVOT Peak Velocity 180.6 cm/s LVOT Peak Gradient 13.0 mmHg LVOT Velocity Time Integral 35.0 cm LVOT Stroke Volume 114.8 cm??? LVOT Stroke Volume Index 66.8 ml/m??? LVOT Cardiac Index 4996.8 cm???/min???m??? AV Area Cont Eq vti 2.5 cm??? AV Area Cont Eq pk 2.7 cm??? Mitral E Point Velocity 46.4 cm/s Mitral A Point Velocity 108.3 cm/s Mitral E to A Ratio 0.4 MV Deceleration Time 187.8 ms LV E' Lateral Velocity 6.4 cm/s Mitral E to LV E' Lateral Ratio 7.2 LV E' Septal Velocity 6.2 cm/s Mitral E to LV E' Septal Ratio 7.5 TR Peak Velocity 209.4 cm/s TR Peak Gradient 17.5 mmHg Right Atrial Pressure 3.0 mmHg Pulmonary Artery Systolic Pressu 20.5 mmHg Right Ventricular Systolic Press 20.5 mmHg FINDINGS Left Ventricle Asymmetric left ventricular hypertrophy. Sigmoid septum. Left ventricular cavity size normal. Normal left ventricular systolic function with no obvious regional wall motion abnormalities. Left ventricular ejection fraction is estimated at 60-65 %. Evidence of hypertrophic obstructive cardiomyopathy Right Ventricle Normal right ventricular size. Right Atrium Mild right atrial dilatation. Left Atrium Normal left atrial size. Mitral Valve Structurally normal mitral valve. Mild mitral regurgitation. Aortic Valve Trileaflet aortic valve. Mild aortic regurgitation. Increased LVOT gradient due to sigmoid septum. Tricuspid Valve Structurally normal tricuspid valve. Mild tricuspid regurgitation. Pulmonic Valve Pulmonic valve not well visualized. Pericardium No pericardial effusion. Aorta Normal size aortic root and proximal ascending aorta. CONCLUSIONS Normal left ventricle size and systolic function with evidence of hypertrophic obstructive cardiomyopathy Mild mitral, aortic and tricuspid regurgitation with no evidence of pulmonary hypertension Previewed by: Dr. Micah Aguilar MD (Electronically Signed) Final Date: 07 November 2023 10:11
== END | disposition home or self-care (01) ==
LOC: RADECHMAIN 13:42
PROVIDERS: ATTEND Family Medicine
DX: I08.3 Combined rheumatic disorders of mitral, aortic and tricuspid valves (principal); R01.1 Cardiac murmur, unspecified; I10 Essential (primary) hypertension
CPT/HCPCS: 93306

== ENCOUNTER → 2024-03-04 | Outpatient (CLI) | payer MEDICARE ==
--- NOTE | 2024-03-04 09:50 | MM ---
Reason for Exam: Additional evaluation requested from prior study. Last mammogram was performed 1 year(s) and 1 month(s) ago. Patient History: Menarche at age 11. First Full-Term at age 35. Late child-bearing (after 30). Postmenopausal. Hormonal Contraceptives, starting at age 19 for 8 years. 02/25/2023, Benign US breast aspiration single RT on the right side. 02/25/2023, US breast aspiration ea add RT on the Right side. 05/10/2022, Benign US breast aspiration single RT on the right side. 1970, Excisional Biopsy on the Right side. 05/01/2010, Benign Cyst Aspiration on the left side. 05/01/2010, Benign Cyst Aspiration on the left side. 01/23/2000, Benign Stereotactic Core Biopsy on the left side. Mother had breast cancer, age 49. Risk Values: Deanna 5 year model risk: 5.3%. NCI Lifetime model risk: 11.2%. Prior Study Comparison: 05/10/2022 Right MG diagnostic mammo RT wo CAD, [facility]. 01/31/2023 Bilateral MG 3D diag mammo w/cad JODI, [facility]. 01/31/2023 Right US breast RT, [facility]. 02/25/2023 Right MG diagnostic mammo RT wo CAD, [facility]. 09/01/2023 Right MG 3D diag mammo w/cad RT, [facility]. Tissue Density: The breasts are heterogeneously dense, which may obscure small masses. Findings: Analyzed By CAD. Redemonstrated is extensive bilateral nodularity with some interval fluctuation. Additional areas of asymmetric density appears relatively unchanged. Given the complexity of breast tissue, further ultrasound evaluation is recommended. 2 microclips right breast and one microclip left breast from prior biopsies. Areas of grouped and scattered calcifications remain unchanged. Overall Assessment: Incomplete: need additional imaging evaluation, BI-RAD 0 Management: Diagnostic Breast Ultrasound of both breasts. Electronically signed and approved by: Thierry Sears M.D. Radiologist
--- NOTE | 2024-03-04 10:31 | USB ---
Reason for Exam: Additional evaluation requested from prior study. Patient History: Menarche at age 11. First Full-Term at age 35. Late child-bearing (after 30). Postmenopausal. Hormonal Contraceptives, starting at age 19 for 8 years. 02/25/2023, Benign US breast aspiration single RT on the right side. 02/25/2023, US breast aspiration ea add RT on the Right side. 05/10/2022, Benign US breast aspiration single RT on the right side. 1970, Excisional Biopsy on the Right side. 05/01/2010, Benign Cyst Aspiration on the left side. 05/01/2010, Benign Cyst Aspiration on the left side. 01/23/2000, Benign Stereotactic Core Biopsy on the left side. Mother had breast cancer, age 49. Risk Values: Deanna 5 year model risk: 5.3%. NCI Lifetime model risk: 11.2%. Technique: Method: Whole Breast Handheld. Prior Study Comparison: 01/31/2023 Bilateral MG 3D diag mammo w/cad JODI, [facility]. 02/25/2023 Right MG diagnostic mammo RT wo CAD, [facility]. 09/01/2023 Right MG 3D diag mammo w/cad RT, [facility]. Findings: The whole breast of both breasts, the axilla of both breasts and the retroareolar of both breasts were scanned. A complete US of all four quadrants of the breast, axilla, and retro-areolar region were reviewed. Numerous bilateral cysts are present, largest on the right and measuring 1 cm and largest on the left measuring 7 mm. At the 7:00 position in the right breast, there is a cyst posterior measuring 1.4 cm. No persisting abnormality identified at the previous 4:00 position. No axillary adenopathy. No suspicious solid lesion seen. Overall Assessment: Probably benign, BI-RAD 3 Management: Diagnostic Mammogram of both breasts in 1 year. See note below in regards to patient's increased 5 year Deanna score. A clinical breast exam by your physician is recommended on an annual basis and results should be correlated with mammographic findings. This exam should not preclude additional follow-up of suspicious palpable abnormalities. Results were given to the patient verbally at the time of exam. Electronically signed and approved by: Thierry Sears M.D. Radiologist
--- NOTE | 2024-03-04 14:34 | BD ---
EXAMINATION TYPE: Axial Bone Density DATE OF EXAM: 03/04/2024 CLINICAL HISTORY: 73 years old Female. ICD-10 CODE: K14464 SCREENING FOR OSTEO Height: 65.25 Weight: 144.7 FRAX RISK QUESTIONS: Alcohol (3 or more units per day): no Family History (Parent hip fracture): no Glucocorticoids (More than 3mos): no History of Fracture in Adulthood: no Secondary Osteoporosis: 1. Type 1 Diabetes: no 2. Hyperthyroidism: no 3. Menopause before 45: yes 4. Malnutrition: no 5. Chronic liver disease: no Rheumatoid Arthritis: no Current Tobacco Use: no RISK FACTORS HISTORY OF: Hip Fracture (Right/Left): no Spine Fracture: no History of Wrist Fracture: no Surgery to Spine/Hip(right/left)/Wrist (right/left): no MEDICATIONS: Thyroid Medications: no Osteoporosis Medications: no EXAM MEASUREMENTS: Bone mineral densitometry was performed using the [employer] System. Bone mineral density as measured about the Lumbar spine is: ----- L1-L4(G/cm2): 0.892 T Score Values are as follows: ----- L1: -2.6 ----- L2: -3.0 ----- L3: -1.4 ----- L4: -2.7 ----- L1-L4: -2.4 Z Score Values are as follows: ----- L1: -0.9 ----- L2: -1.2 ----- L3: 0.3 ----- L4: -1.0 ----- L1-L4: -0.7 Baseline Study Bone mineral density about the R hip (g/cm2): 0.808 Bone mineral density about the L hip (g/cm2): 0.851 T Score values are as follows: -----R Neck: -2.3 -----L Neck: -1.9 -----R Total: -1.6 -----L Total: -1.2 Z Score values are as follows: -----R Neck: -0.4 -----L Neck: 0.0 -----R Total: 0.1 -----L Total: 0.5 Baseline Study FRAX%s: The graph provided illustrates a 15.2% chance for a major osteoporotic fx and a 4.6% chance f or the hips probability for fx in 10 years time. IMPRESSION: Osteopenia (T Score between -2.5 and -1). However, measurements are bordering on osteoporosis particu larly in the lumbar spine. There is slightly increased risk of fracture and the patient may be considered for treatment. Re-Screen 2-5 years. NOTE: T-SCORE=SD OF THE YOUNG ADULT MEAN.
== END | disposition home or self-care (01) ==
LOC: RADBDWWP 08:47
PROVIDERS: ATTEND Family Medicine
DX: Z13.820 Encounter for screening for osteoporosis (principal); N60.11 Diffuse cystic mastopathy of right breast; N60.12 Diffuse cystic mastopathy of left breast; M85.89 Other specified disorders of bone density and structure, multiple sites; M81.0 Age-related osteoporosis without current pathological fracture; R92.333 Mammographic heterogeneous density, bilateral breasts; R92.2 Inconclusive mammogram; R92.1 Mammographic calcification found on diagnostic imaging of breast; Z78.0 Asymptomatic menopausal state; Z80.3 Family history of malignant neoplasm of breast
CPT/HCPCS: 77080; 77066; 76641; G0279; 77062